=== PATIENT | female | born 1950 | race Caucasian/White ===

== ENCOUNTER 2016-08-07 12:14 | Emergency (ER) | payer MEDICARE, OTHER ==
[~2016-08-07] VITALS: Ht 162.6 cm; Wt 44.5 kg
[~2016-08-07 12:14] MED LIST: ALBU8I INH; CALTTAB5 PO; CELE200 PO; COUM5TAB PO; CRANCAP11 PO; ESTR1TAB12 PO; FLOR250C PO; FORTICAL; NASA0.0521; NEXI20CA PO; PERC10TA27 PO; SOMA350T PO; VITA250L PO; VITACAP32
[2016-08-07 12:27] VITALS: BP 136/91; PULSE 80; RESP 18; TEMP 97.4; O2SAT 100
[2016-08-07] MEDS ORDERED: WARF-23 PO (13:41)
[2016-08-07] MEDS ORDERED: CALCTAB8 PO (13:41)
[2016-08-07] MEDS ORDERED: VITA250T5 PO (13:41)
[2016-08-07] MEDS ORDERED: CELE200C PO (13:41)
[2016-08-07] MEDS ORDERED: VITA500C9 CHEW (13:41)
[2016-08-07] MEDS ORDERED: NEXI40CA PO (13:41)
[2016-08-07] MEDS ORDERED: AMLO2.5T PO (13:41)
[2016-08-07] MEDS ORDERED: CRANCAP2 PO (13:41)
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
--- NOTE | 2016-08-07 14:48 | RADHPO ---
EXAM DATE/TIME: 08/07/2016 14:19 [facility] COMPARISON: No previous studies available for comparison. INDICATIONS: Left foot pain after fall. MEDICAL HISTORY: None. SURGICAL HISTORY: Left foot reconstructive surgery ENCOUNTER: Initial ACUITY: 1 day PAIN SCORE: 6/10 LOCATION: Left anterior foot FINDINGS: Bones are osteopenic. There is a fracture of distal third and fourth metatarsals. Alignment is reas onably anatomic. CONCLUSION: Osteopenia, nondisplaced fractures distal third and fourth metatarsals. Noam Lai MD FACR on August 07, 2016 at 14:37 Board Certified Radiologist. This report was verified electronically.
== END 2016-08-07 15:24 | disposition home or self-care (01) ==
LOC: PHED 12:14 → PHEFT 15:24
DX: S92.335A Nondisplaced fracture of third metatarsal bone, left foot, initial encounter for closed fracture (principal); S92.345A Nondisplaced fracture of fourth metatarsal bone, left foot, initial encounter for closed fracture; M85.80 Other specified disorders of bone density and structure, unspecified site; I10 Essential (primary) hypertension; Z86.718 Personal history of other venous thrombosis and embolism; Z79.01 Long term (current) use of anticoagulants; W18.00XA Striking against unspecified object with subsequent fall, initial encounter; Y93.89 Activity, other specified; Y92.008 Other place in unspecified non-institutional (private) residence as the place of occurrence of the external cause
CPT/HCPCS: 29515; 73630